=== PATIENT | male | born 1980 | race African-American/Black ===

== ENCOUNTER → 2016-10-24 | Outpatient (CLI) | payer OTHER ==
[2016-01-14 13:25] VITALS: BP 120/71
[~2016-10-24] MED LIST: PROAIR HFA8.5 GM IH; SYMBICORT
--- NOTE | 2016-10-24 16:04 | RAD ---
Indication: Left testicle and groin pain. The right testicle measures 4.7 x 2.3 x 3.0 cm and the left testicle measures 4.5 x 2.2 x 3.1 cm. Both testes demonstrate normal homogeneous echotexture. No discrete mass is detected. There is normal arterial blood flow to both testes. There is a 1.3 cm epididymal head cyst on the right. The left epididymis is unremarkable. The left groin is unremarkable. No hernia or defect is seen. Impression: 1. No evidence of testicular mass or vascular compromise. 2. Right epididymal cyst.
== END | disposition home or self-care (01) ==
LOC: US 15:12
PROVIDERS: ATTEND Internal Medicine
DX: N50.812 Left testicular pain (principal); R10.30 Lower abdominal pain, unspecified
CPT/HCPCS: 76870